=== PATIENT | male | born 1980 | race Caucasian/White ===

== ENCOUNTER 2016-08-05 22:29 | Emergency (ER) | payer SELFPAY ==
[~2016-08-05 22:29] MED LIST: CLINDAMYCIN HC150 M1 PO; CYCLOBENZAPRINE10 M1 PO; CYCLOBENZAPRINE5 M1 PO; FLEXERIL10 MG PO; NORCO 5-325 TA1 EACH PO; NORCO 5/3251 TAB PO; TRAMADOL HCL50 M2 PO; ULTRAM50 M1 PO
[2016-08-05] MEDS ORDERED: BACTRIM DS TAB1 EAC2 PO (23:11)
[2016-08-05] MEDS ORDERED: ELIMITE60 G2 TP (23:11)
[2016-08-05] MEDS ORDERED: PREDNISONE20 M1 PO (23:11)
== END 2016-08-05 23:29 ==
LOC: EDMED 22:29
DX: R21 Rash and other nonspecific skin eruption (principal); Z98.890 Other specified postprocedural states